=== PATIENT | female | born 1980 | race Caucasian/White ===

== ENCOUNTER 2023-05-10 06:01 | Day surgery (SDC) | payer OTHER ==
[2023-05-10 07:01] LABS: #Basophils 0.1 10x3/uL (0.0-0.2); #Eosinphils 0.1 10x3/uL (0.0-0.5); #Monocytes 0.6 10x3/uL (0.0-1.1); #Neutrophils 3.9 10x3/uL (1.5-8.4); %Basophils 0.9 % (0.0-2.0); %Eosinophils 2.1 % (0.0-6.0); %Monocytes 9.4 % (0.0-10.0); %Neutrophils 58.3 % (40.0-75.0); Hematocrit 40.8 % (34.9-44.5); Hemoglobin 13.7 g/dL (12.0-15.5); Mean Corpuscular HGB CONC 33.6 g/dL (32.0-36.0); Mean Corpuscular Hemoglobin 32.2 pg (27.0-33.0); Mean Corpuscular Volume 95.8 fl (81.6-98.3); Platelet Count 204 10x3/uL (150-450); RBC Distribution Width 11.7 % (11.5-14.5); Red Blood Cell (RBC) Count 4.26 10x6/uL (3.90-5.03); White Blood Cell (WBC) Count 6.7 10x3/uL (3.5-10.5)
[2023-05-10] MEDS ORDERED: CEFAZOLIN 1 GM VIAL ONE ×2 (07:03→08:02)
[2023-05-10] MEDS ORDERED: Gentamicin 80 MG/2 ML VIAL ONE (07:03)
[2023-05-10] MEDS ORDERED: fentaNYL 50 mcg/mL 1 mL Vial ONE ×2 (07:03→08:27)
[2023-05-10] MEDS ORDERED: Lidocaine 1% (PF) 30 ML VIAL ONE ×2 (07:03→08:31)
[2023-05-10] MEDS ORDERED: Midazolam HCl 2 mg/2 ml Vial ONE ×2 (07:04→08:27)
[2023-05-10 07:13] LABS: BHCG - Serum Negative (NEGATIVE); Pregs Control Background? CLEAR/WHITE (CLR/WHITE); Pregs Control Bar Appear? YES (CONTROL BAR)
[2023-05-10 07:22] LABS: Anion Gap 12 mmol/L (10-20); BUN (Urea Nitrogen) 18 mg/dL (7.0-18.7); Calc. Creatinine Clearance 0 mL/min (70-130); Calcium 8.8 mg/dL (7.8-10.44); Carbon Dioxide 25 mmol/L (22-29); Chloride 107 mmol/L (98-107); Estimated GFR 87; Glucose 95 mg/dL (70-105); Potassium 4.5 mmol/L (3.5-5.1); Sodium 139 mmol/L (136-145)
[2023-05-10 07:23] LABS: PTT 26.4 sec (22.0-33.0); Prothrombin Time 10.4 sec (9.5-12.1)
[2023-05-10 07:36] VITALS: BP 144/68; TEMP 97.5
[2023-05-10] MEDS ORDERED: Atropine Sulfate 1 mg/1 ml Vial ONE (08:11)
== END 2023-05-10 11:35 | disposition home or self-care (01) ==
LOC: CSHSDC 06:01
PROVIDERS: ATTEND Specialist
PROC: 0JH606Z Insertion of Pacemaker, Dual Chamber into Chest Subcutaneous Tissue and Fascia, Open Approach (ICD-10-PCS; principal; 2023-05-10)
PROC: 0JPT0PZ Removal of Cardiac Rhythm Related Device from Trunk Subcutaneous Tissue and Fascia, Open Approach (ICD-10-PCS; principal; 2023-05-10)
DX: T82.111A Breakdown (mechanical) of cardiac pulse generator (battery), initial encounter (principal); R00.1 Bradycardia, unspecified; Z88.5 Allergy status to narcotic agent; Y71.2 Prosthetic and other implants, materials and accessory cardiovascular devices associated with adverse incidents
CPT/HCPCS: 33228; 71045; 80048; 84703; 85025; 85610; 85730; 93005; 93010; 99152; 99153; C1785; J0461; J0690; J1580; J2001; J2250; J3010